=== PATIENT | male | born 1955 | race Caucasian/White ===

== ENCOUNTER 2020-08-04 15:41 | Emergency (ER) | payer BC ==
[~2020-08-04] VITALS: Ht 170.2 cm; Wt 72.6 kg
--- NOTE | 2020-08-04 16:00 | NUR ---
R SHOULDER PAIN S/P FALLING OFF FIRST STEP OF A LADDER AT AROUND 1400. LANDED ON THE RIGHT SIDE. DENIES HEAD INJURY. SCRAPE TO R KNEE NOTED. PT AAOX4, VSS. RR EVEN & UNLABORED. DENIES ANY OTHER DISCOMFORT. PT SEEN & EVAL'D BY PRIYANKA ANTON. WILL CONT TO MONITOR.
[2020-08-04] MEDS ORDERED: BACI3.5O23 OP (17:15)
[2020-08-04] MEDS ORDERED: ACET-2605 PO (17:15)
[2020-08-04] MEDS ORDERED: HYDR-4303 PO (17:22)
[2020-08-04 17:33] VITALS: BP 118/67
== END 2020-08-04 17:34 | disposition home or self-care (01) ==
LOC: ER 15:48
DX: S80.211A Abrasion, right knee, initial encounter (principal); M25.511 Pain in right shoulder; Z85.6 Personal history of leukemia; Z79.899 Other long term (current) drug therapy; W11.XXXA Fall on and from ladder, initial encounter; Y93.89 Activity, other specified; Y92.89 Other specified places as the place of occurrence of the external cause; Y99.8 Other external cause status
CPT/HCPCS: 73030-TC; 73564-TC